=== PATIENT | male | born 1955 | race Caucasian/White ===

== ENCOUNTER 2022-04-14 21:14 | Inpatient (IN) | payer OTHER ==
[~2022-04-14] VITALS: Ht 170.2 cm; Wt 104.3 kg
--- NOTE | 2022-04-14 22:00 | NUR ---
SVETLANA FROM HOME C/O AMS X1 HOUR. PLACED ON BED, AWAKE- ALERT, RESPONDING TO QUESTION- CONFUSED.
--- NOTE | 2022-04-14 22:15 | NUR ---
REFRIGERATOR MOVER AT BEDSIDE
--- NOTE | 2022-04-14 22:33 | NUR ---
PATIENT TAKEN TO CT VIA [facility]
[2022-04-14 22:50] LABS: BASOPHILS % (AUTO) 0.5 % (0.0-2.0); EOSINOPHILS % (AUTO) 0.8 % (0.0-6.0); HEMATOCRIT 46 % (39-51); HEMOGLOBIN 15.6 g/dL (13.5-17.5); LYMPHOCYTES # (AUTO) 0.4 K/uL (0.8-4.8); LYMPHOCYTES % (AUTO) 7.1 % (20.0-44.0); MEAN CORPUSCULAR HGB CONC 34 g/dl (31.0-36.0); MEAN CORPUSCULAR VOLUME 97 fL (80-96); MONOCYTES # (AUTO) 0.2 K/uL (0.1-1.30); MONOCYTES % (AUTO) 3.5 % (2.0-12.0); NEUTROPHILS # (AUTO) 4.6 K/uL (1.8-8.9); NEUTROPHILS % (AUTO) 88.1 % (43.0-81.0); PLATELET COUNT (AUTO) 128 K/uL (150-450); RED BLOOD CELL COUNT(AUTO) 4.76 MIL/uL (4.5-6.0); WHITE BLOOD COUNT (AUTO) 5.3 K/uL (4.3-11.0)
[2022-04-14 23:01] LABS: CALCIUM, SERUM 9.5 mg/dL (8.5-10.1); CARBON DIOXIDE 29 mmol/L (21-32); CHLORIDE 103 mmol/L (98-107); CREATININE 1.5 mg/dL (0.6-1.3); GLUCOSE 119 mg/dL (74-106); POTASSIUM 3.7 mmol/L (3.5-5.1); SODIUM SERUM 139 mmol/L (136-145); UREA NITROGEN, BLOOD 20 mg/dL (7-18)
--- NOTE | 2022-04-14 23:03 | NUR ---
urine sample sent to lab
[2022-04-14 23:06] LABS: ALANINE AMINOTRANSFERASE 41 U/L (12-78); ALBUMIN 3.6 g/dL (3.4-5.0); ALKALINE PHOSPHATASE 83 U/L (46-116); ASPARTATE AMINOTRANSFERASE 30 U/L (15-37); BILIRUBIN,DIRECT 0.2 mg/dL (0.0-0.2); BILIRUBIN,TOTAL 0.7 mg/dL (0.2-1.0); TOTAL PROTEIN, SERUM 7.9 g/dL (6.4-8.2)
--- NOTE | 2022-04-14 23:11 | NUR ---
LACTIC ACID 2.1; AWARE
[2022-04-14 23:28] LABS: BILIRUBIN,URINE NEGATIVE (NEGATIVE); COLOR,URINE YELLOW (YELLOW); LEUKOCYTE ESTERASE ,URINE NEGATIVE (NEGATIVE); NITRITE, URINE NEGATIVE (NEGATIVE); PROTEIN,URINE NEGATIVE (NEGATIVE); UGLUCOSE NEGATIVE (NEGATIVE); UROBILINOGEN,URINE 0.2 EU/dL (0.2)
--- NOTE | 2022-04-14 23:31 | NUR ---
RECEIVED A CALL FROM [facility]. PT TROP 183. DR DALY MADE AWARE
[2022-04-15] MEDS ORDERED: KETOROLAC TROMETHAMINE INJ 30 MG/ML VIAL IV ONE (00:30)
--- NOTE | 2022-04-15 00:45 | NUR ---
PT AMBULATED TO RESTOOM WITH 1-PERSON STANDBY ASSIST. ADLS DONE. SAFETY MEASURES IN PLACE. PT KEPT CLEAN AND DRY.
[2022-04-15] MEDS ORDERED: KETOROLAC TROMETHAMINE INJ 30 MG/ML VIAL ONE (00:48)
--- NOTE | 2022-04-15 00:52 | NUR ---
DIRECTOR OF DANCE AT PT'S BEDSIDE
--- NOTE | 2022-04-15 01:04 | NUR ---
PAED DR [facility]
--- NOTE | 2022-04-15 01:20 | NUR ---
CRITICAL LAB TROPONIN 199; DR. MALIKA CABEZAS AWARE.
--- NOTE | 2022-04-15 01:24 | NUR ---
EMT AT PT'S BEDSIDE FOR EKG
--- NOTE | 2022-04-15 01:26 | NUR ---
DR GARCIA OF [facility] CALLED TO SPEAK TO DR DALY.
[2022-04-15] MEDS ORDERED: ASPIRIN 325 MG TABLET PO ONE (01:30)
[2022-04-15] MEDS ORDERED: IV NS 0.9% 1,000 ML IV ONE ×2 (01:30)
--- NOTE | 2022-04-15 01:41 | NUR ---
COVID SWAB DONE AND SENT TO LAB
--- NOTE | 2022-04-15 01:44 | NUR ---
DR DALY ON THE PHONE WITH JOSE ALBERTO KENNEDY, HOSPITALIST
[2022-04-15] MEDS ORDERED: ASPIRIN 325 MG TABLET ONE (01:49)
[2022-04-15] MEDS ORDERED: Z GUARD REMEDY 4 OZ OINT TP PRN (02:00)
[2022-04-15] MEDS ORDERED: ACETAMINOPHEN 325 MG TABLET PO PRN (02:00)
[2022-04-15] MEDS ORDERED: MAG HYDROX/AL HYDROX/SIMETH 30 ML UDC PO PRN (02:00)
[2022-04-15] MEDS ORDERED: HYDROCODONE/APAP 5/325MG TABLET PO PRN (02:00)
[2022-04-15] MEDS ORDERED: MAGNESIUM HYDROXIDE 30 ML UDC PO PRN (02:00)
[2022-04-15] MEDS ORDERED: ONDANSETRON HCL/PF 4 MG/2 ML VIAL IVP PRN (02:00)
--- NOTE | 2022-04-15 02:50 | NUR ---
TYREE MANRIQUEZ AT [facility]: AUTH NUMBER TO STAY: [id number]
--- NOTE | 2022-04-15 07:19 | NUR ---
ADLS DONE. PT URINATED IN RESTROOM WITH 1-PERSON ASSIST. PT KEPT CLEAN AND DRY. SKIN INTACT. SAFETY MEASURES IN PLACE.
[2022-04-15] MEDS ORDERED: PANTOPRAZOLE 40 MG TABLET.DR PO SCH (07:30)
[2022-04-15] MEDS ORDERED: PANTOPRAZOLE 40 MG TABLET.DR PO ONE (07:34)
--- NOTE | 2022-04-15 07:54 | NUR ---
BED GIVEN 314-2
--- NOTE | 2022-04-15 08:07 | NUR ---
PT REPORT GIVEN TO VÍCTOR OLSON
[2022-04-15] MEDS ORDERED: MORP15TA7 PO (08:39)
[2022-04-15] MEDS ORDERED: FINA5TAB11 PO (08:39)
[2022-04-15] MEDS ORDERED: HYDR25TA4 PO (08:39)
[2022-04-15] MEDS ORDERED: DICL100G34 TP (08:39)
[2022-04-15] MEDS ORDERED: ATOR40TA PO (08:39)
[2022-04-15] MEDS ORDERED: METO25TA6 PO (08:39)
[2022-04-15] MEDS ORDERED: TERA10CA4 PO (08:39)
[2022-04-15] MEDS ORDERED: GABA600T12 PO (08:39)
[2022-04-15] MEDS ORDERED: ASPI-1420 PO (08:39)
[2022-04-15] MEDS ORDERED: HEPARIN SODIUM, PORCINE 5000 UNITS/1 ML VIAL SQ SCH (09:00)
--- NOTE | 2022-04-15 09:50 | NUR ---
WASH DRILLER ADMITTING NOTES ADMITTED A 66 YO MALE TO THE UNIT AT 0935 VIA GURNEY WITH DX OF NSTEMI. PATIENT IS AOX4, ABLE TO MAKE NEEDS KNOWN. ORIENTED TO ROOM AND STAFF. VS TAKEN, STABLE AND RECORDED. PT ON ROOM AIR, TOLERATING WELL. WITH NO ACUTE RESPIRATORY DISTRESS NOTED. TELEMONITORING SHOWS AFIB/AFLUTTER AT 88 BPM. IV ACCESS NOTED ON LEFT AC G#20, SALINE LOCKED, PATENT, FLUSHING WELL. LUNGS CLEAR ON AUSCULTATION BILATERALLY. PHOTOS OF SKIN ISSUES TAKEN AND FILED ON HIS CHART. SAFETY MEASURES IMPLEMENTED: BED IN LOWEST POSITION WITH SR X2, TABLE AND CALL LIGHT W/I EASY REACH. WILL CONTINUE TO MONITOR.
--- NOTE | 2022-04-15 10:15 | NUR ---
PT TRANSFERRED TO UNIT VIA GURNEY. ABLE TO AMBULATE FROM GURNEY TO BED IN 314-2 W/ CONTACT GUARD ASSIST/MIN ASSIST. WARM HANDOFF GIVEN TO VÍCTOR OLSON
[2022-04-15] MEDS ORDERED: METOPROLOL TARTRATE 25 MG TABLET PO SCH (11:00)
[2022-04-15] MEDS ORDERED: ASPIRIN EC 81 MG TABLET.DR PO SCH (11:00)
[2022-04-15] MEDS ORDERED: FINASTERIDE (5 MG) 5 MG TABLET PO SCH (11:00)
[2022-04-15] MEDS ORDERED: Medication Not On Formulary EA (Gabapentin 600 MG) PO SCH (11:00)
[2022-04-15] MEDS ORDERED: TERAZOSIN HCL 10 MG PO SCH (11:00)
[2022-04-15] MEDS ORDERED: ATORVASTATIN 40 MG TABLET PO SCH (11:00)
[2022-04-15] MEDS: MORPHINE SULFATE INJ 2 MG/ML DISP.SYRIN IV PRN ×3 (11:19→21:28)
[2022-04-15] MEDS ORDERED: TERAZOSIN HCL 5 MG CAPSULE PO SCH (11:30)
[2022-04-15] MEDS ORDERED: INSULIN REGULAR, HUMAN 100 UNIT/ML 3 ML VIAL SQ PRN (13:00)
[2022-04-15] MEDS ORDERED: DEXTROSE 50%-WATER 50 ML DISP.SYRIN IV PRN (13:00)
--- NOTE | 2022-04-15 13:32 | NUR ---
RN NOTES - LAB REPORTED - BLOOD CX PRELIMINARY - GRAM POSITIVE COCCI IN CHAINS SEEN ON GRAM STAIN AEROBIC. MD IS AWARE.
[2022-04-15 15:18] LABS: CALCIUM, SERUM 9.2 mg/dL (8.5-10.1); CREATININE 1.2 mg/dL (0.6-1.3); POTASSIUM 3.4 mmol/L (3.5-5.1)
[2022-04-15] MEDS ORDERED: VANCOMYCIN 1.25 GM in IV D5W 250 ML IV ONE (16:00)
[2022-04-15] MEDS ORDERED: GABAPENTIN 300 MG CAPSULE PO SCH (17:00)
--- NOTE | 2022-04-15 17:00 | NUR ---
RN NOTES - RECEIVED A CALL THAT PT COULDNT DO THE MRI D/T PAIN, MORPHINE IV WAS GIVEN 30 MINS PRIOR TO THE PROCEDURE.
--- NOTE | 2022-04-15 17:00 | NUR ---
RN NOTES - REQUESTED FOR KOSHER DIET, INFORMED DIETARY.
[2022-04-15] MEDS ORDERED: BLOOD SUGAR DIAGNOSTIC 1 EACH STRIP IN SCH (17:30)
--- NOTE | 2022-04-15 18:21 | NUR ---
RN NOTES - VANCOMYCIN FOR 1600 WASNT GIVEN UNTIL 1814, DIDNT RECEIVE THE BAG UNTIL PAST 1799.
--- NOTE | 2022-04-15 19:25 | NUR ---
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 PT ON ROOM AIR, TOLERATING WELL. WITH NO ACUTE RESPIRATORY DISTRESS NOTED. TELEMONITORING SHOWS AFIB/AFLUTTER AT 82 BPM. IV ACCESS NOTED ON LEFT AC G#20 WITH RUNNING VANCO AT THE MOMENT. SAFETY MEASURES MAINTAINED BED IN LOWEST POSITION WITH SR X2, TABLE AND CALL LIGHT W/I EASY REACH. WILL CONTINUE TO MONITOR.
--- NOTE | 2022-04-15 19:30 | NUR ---
RN OPENING NOTE PATIENT SLEEPING WHEN RECEIVED. PATIENT IS A/O X 1-2 AT THIS TIME, NEEDS REORIENTATION. REORIENTED PATIENT TO PLACE, TIME, AND SITUATION. PATIENT IS ON RA, TOLERATING WELL, NO SOB NOTED. PATIENT DOES NOT REPORT ANY PAIN AT THIS TIME. PATIENT HAS A RAC 20 G PATENT AND INTACT WITH IV ABX ONGOING. PATIENT'S TELE MONITOR READS AFIB/AFLUTTER 70 BPM. PATIENT NOT IN ANY APPARENT DISTRESS. SAFETY MEASURES IN PLACE: BED LOCKED AND IN LOWEST POSITION, CALL LIGHT WITHIN REACH, SIDE RAILS UP. WILL MONITOR PATIENT CLOSELY.
[2022-04-15 20:00] VITALS: BP 115/76
--- NOTE | 2022-04-15 20:00 | NUR ---
[facility] COORDINATOR FROM [facility] CALLED TO SAY THAT THE PATIENT WILL BE GETTING TRANSFERRED TO [facility] . PER [facility] PATIENT WILL BE PICKED UP BY [facility] AT 2100 AND WILL BE GOING TO ROOM 7558 AND ACCEPTING MD IS DR. MERCADO. THE NUMBER TO GIVE REPORT IS [phone]. KOKO'S NUMBER IS [phone]. INFORMED OF PATIENT'S LATEST VITAL SIGNS.
--- NOTE | 2022-04-15 21:36 | NUR ---
TRANSFER NOTE 3 EMT PRESENT TO TRANSPORT PATIENT TO [facility]. PATIENT WAS GIVEN MORPHINE 4 MG IV FOR PAIN 03/24 AT 2128. EXIT CARE GIVEN. ALL NECESSARY DOCUMENTS PROVIDED INCLUDING ACUTE TO ACUTE TRANSFER FORMS. EDUCATION MATERIALS PROVIDED. VSS STABLE DURING TRANSFER. RAC 20 G, SALINE LOCK. ALL BELONGINGS WITH THE PATIENT. COPY OF EXIT CARE PLACED IN THE CHART.
--- NOTE | 2022-04-15 23:17 | NUR ---
NOTIFIED LUC MARTINEZ RE PATIENT'S TRANSFER TO [facility].
[2022-04-16] MEDS ORDERED: VANCOMYCIN 1 GM in IV D5W 250ml IV SCH (04:00)
[2022-04-16] MEDS ORDERED: VANCOMYCIN 0.75 GM in IV D5W 250 ML IV SCH (04:00)
== END 2022-04-15 21:40 | disposition short-term general hospital (02) | DRG 69 ==
LOC: ER 21:16 → TRANSITION 04-15 03:15 → TELE 04-15 08:43
PROVIDERS: ADMIT Nurse Practitioner Acute Care; ATTEND Nurse Practitioner Acute Care
DX: G45.9 Transient cerebral ischemic attack, unspecified (principal); I21.4 Non-ST elevation (NSTEMI) myocardial infarction; G92.8 Other toxic encephalopathy; N17.0 Acute kidney failure with tubular necrosis; E87.20 Acidosis, unspecified; I48.20 Chronic atrial fibrillation, unspecified; E86.0 Dehydration; E11.9 Type 2 diabetes mellitus without complications; E66.9 Obesity, unspecified; E78.5 Hyperlipidemia, unspecified; I10 Essential (primary) hypertension; N40.0 Benign prostatic hyperplasia without lower urinary tract symptoms; Z79.891 Long term (current) use of opiate analgesic; R53.1 Weakness; Z68.36 Body mass index [BMI] 36.0-36.9, adult; I35.0 Nonrheumatic aortic (valve) stenosis; R29.703 NIHSS score 3; Z20.822 Contact with and (suspected) exposure to COVID-19
CPT/HCPCS: 36415; 70450-TC; 71045-TC; 76770-TC; 80048-TC; 80076-TC; 82962-TC; 83605-TC; 84484-TC; 85025-TC; 85730-TC; 87040-TC; 87081-TC; 87086-TC; 93307-TC; C9803; G0378; J1644; J1815; J1885; J2270; J2405; J3370; J7030; J7050; J7060